=== PATIENT | female | born 1975 | race Caucasian/White ===

== ENCOUNTER → 2018-12-22 19:56 | Outpatient (REF) | payer OTHER, MEDICAID, SELFPAY ==
[2018-12-22 20:50] LABS: Alanine Aminotransferase 55 IU/L (9-52); Albumin 4.1 g/dL (3.5-5.0); Albumin Globulin Ratio 1.4 (1.0-2.8); Alkaline Phosphatase 48 U/L (38-126); Aspartate Aminotransferase 31 IU/L (14-36); Bilirubin Total 0.7 mg/dL (0.2-1.3); Blood Urea Nitrogen 9 mg/dL (7-17); Carbon Dioxide 25 mmol/L (22-32); Chloride 105 mmol/L (98-107); Estimated Glomerular Filt Rate > 60.0 mL/min (>60); Glucose 93 mg/dL (70-100); HEMOLYSIS < 15 (0-50); Potassium 4.4 mmol/L (3.4-5.1); Sodium 140 mmol/L (137-145); Total Protein 7.1 g/dL (6.3-8.2)
[2018-12-22 20:54] LABS: Hemoglobin A1C% w Est Avg Glu 5.7 % (4.0-6.0)
== END ==
LOC: LAB 19:56
PROVIDERS: Visit Provider Naturopath
DX: E11.9 Type 2 diabetes mellitus without complications (principal)
CPT/HCPCS: 80053; 83036

== ENCOUNTER 2020-01-15 13:34 | Emergency (ER) | payer SELFPAY ==
[2020-01-15 13:40] VITALS: BP 145/71; PULSE 74; RESP 16; TEMP 36.8; O2SAT 98; BMI 47.2
--- NOTE | 2020-01-15 15:47 | DI.CT.S_ITS ---
PROCEDURE: CT SOFT TISSUE NECK W CON INDICATIONS: L jaw pain, looking for parotid mass / abcess TECHNIQUE: After the administration of intravenous contrast, 3.0 mm axial sections acquired from the sella to the aortic arch. Additional oblique axial 3.0 mm sections acquired through the pharynx. 3 mm thick coronal and sagittal reformats were generated. For radiation dose reduction, the following was used: automated exposure control. COMPARISON: None. FINDINGS: Image quality: Excellent. Lymph nodes: No enlarged lymph nodes seen throughout the neck. Vessels: Visualized vasculature appears patent. Neck spaces: The oropharynx, nasopharynx, and pharynx demonstrate no mucosal lesions. The vocal cords, false vocal cords, pyriform sinuses, epiglottis, vallecula, and tongue base all appear normal. Extramucosal spaces appear unremarkable. Glands: The parotid and submandibular glands appear normal. Thyroid gland appears normal. Miscellaneous: Visualized brain and orbits appear normal. Lung apices appear clear. Superficial soft tissues appear normal. Bones: No suspicious bony lesions. Visualized sinuses and mastoids appear unremarkable. IMPRESSION: There is clinical concern is described as the left parotid region. The parotid gland shows homogeneous radiodensity without identifiable inflammation or underlying soft tissue mass. No adjacent adenopathy is found. A source of the clinically reported asymmetry in the parotid regions, left versus right, is not found. Dictated by: Sin Britton M.D. on 01/15/2020 at 16:58 Approved by: Sin Britton M.D. on 01/15/2020 at 17:02
[2020-01-15] MEDS: SODIUM CHLORIDE 0.9% 1,000 ML 1000 ML IV (16:07)
[2020-01-15 16:11] LABS: Add Manual Diff / Slide Review NO; Basophils Absolute Auto 100 /uL (0-100); Basophils Percent Auto 0.6 % (0-2); Eosinophils Absolute Auto 900 /uL (0-450); Eosinophils Percent Auto 8.8 % (2-4); Hematocrit 42.6 % (36-46); Hemoglobin 14.1 g/dL (12.0-16.0); Lymphocytes Absolute Auto 3600 /uL (1100-4500); Lymphocytes Percent Auto 35.8 % (25-40); Mean Corpuscular Hemoglobin 30.6 PG (26-34); Mean Corpuscular Volume 92.7 fL (80-100); Monocytes Absolute Auto 600 /uL (0-900); Monocytes Percent Auto 5.5 % (3-14); Neutrophils Absolute Auto 4900 /uL (1500-7000); Neutrophils Percent Auto 49.3 % (50-75); Platelet Count 259 X10^3/uL (150-400); Red Blood Cell Count 4.59 X10^6/uL (4.0-5.2)
[2020-01-15 16:14] VITALS: BP 148/80; PULSE 70; RESP 18; O2SAT 99
[2020-01-15 16:22] LABS: Alanine Aminotransferase 21 IU/L (<35); Albumin 4.6 g/dL (3.5-5.0); Albumin Globulin Ratio 1.2 (1.0-2.8); Alkaline Phosphatase 39 U/L (38-126); Aspartate Aminotransferase 31 IU/L (14-36); BUN Creatinine Ratio 24.6 (6-22); Bilirubin Total 0.7 mg/dL (0.2-1.3); Blood Urea Nitrogen 15 mg/dL (7-17); Calcium 9.5 mg/dL (8.4-10.2); Carbon Dioxide 24 mmol/L (22-32); Chloride 107 mmol/L (98-107); Estimated Glomerular Filt Rate > 60.0 mL/min (>60); Globulin 3.7 g/dL (1.7-4.1); Glucose 89 mg/dL (70-100); Potassium 4.2 mmol/L (3.4-5.1); Sodium 140 mmol/L (137-145); Total Protein 8.3 g/dL (6.3-8.2)
[2020-01-15 16:24] LABS: HEMOLYSIS 79 (0-50)
--- NOTE | 2020-01-15 17:01 | ED_ITS ---
HPI - Dental/Oral <Mina TerrellTIFFANY crawfordP - Last Filed: 01/15/20 23:29> General Chief complaint: Dental/Oral Stated complaint: Swelling of jaw, pain, nausea, shakes Time Seen by Provider: 01/15/20 14:52 Source: patient Mode of arrival: Ambulatory Limitations: no limitations History of Present Illness HPI Narrative: This is a 44 year female, nonsmoker, who presents to ED with chief complain of left parotid gland and cervical lymph node swelling and concerns for infection. Patient reports she noticed the swelling swelling since October this year and she had received 2 antibiotic medication treatment with Augmentin b.i.d. dose for 5 days. Last antibiotic medication was completed 1 week ago having 2 week break from 1st antibiotic medication completion. After each antibiotic medication therapy, her symptoms and swelling had improved with occasional redness on her face. Patient reports last 2 weeks she has been having feeling run down with chills, nausea, feeling sweaty at nights. She correlates with these symptoms with high sugar content in her diet. Patient also tried Nystatin for 1 day but the side effects was unbearable with nausea, diarrhea, chills and the urinary tract infection symptoms and she had stopped taking this which was prescribed to cover Crystal infection empirically. Patient reports she had contacted her primary care physician Dr. Cristina to inform this. She also was evaluated by dentist in 12/07/19 thought she had dental caries or abscess but she was informed negative for abscess or dental caries. Patient reports some discomfort in her left ear. She denies sore throat, cough, dysphagia, swelling in her throat. Patient has medical conditions such as diabetes, cholecystectomy, kidney surgery during childhood. Related Data Allergies Allergy/AdvReac Type Severity Reaction Status Date / Time No Known Drug Allergies Allergy Verified 01/15/20 13:40 Review of Systems <Mina Terrellty [employer]IST[employer] - Last Filed: 01/15/20 23:29> Review of Systems Narrative: General: Denies (+) subjective fever, (+) chills, fatigue, (+) malaise, sweats. HEENT: See HPI Respiratory: Denies dyspnea, cough, wheezing, hemoptysis, sputum. Cardiovascular: Denies chest pain, palpitations, orthopnea, edema. Gastrointestinal: Denies nausea, vomiting, abdominal pain, diarrhea, constipa tion, melena. : Denies dysuria, frequency, incontinence, hematuria, urinary retention. Musculoskeletal: Denies weakness, joint pain or bony pain. Skin: Denies rash, skin lesions, or other. Neurologic: Denies weakness, headache, numbness, change in speech, confusion, seizures, incoordination. Psychiatric: No concerning psychosocial issues. 12-point review of systems is negative except for those stated above. Patient History <VANE Pichardo - Last Filed: 01/15/20 23:29> Medical History (Updated 01/15/20 @ 17:50 by VANE Pichardo) Diabetes (Acute) FH: cholecystectomy (Acute) Surgical History (Updated 01/15/20 @ 17:14 by VANE Pichardo) History of kidney surgery (Acute) History of umbilical hernia repair (Acute) Social History Smoking Status: Never smoker Smoking Status: Never smoker Substance Use Type: does not use Exam <VANE Pichardo - Last Filed: 01/15/20 23:29> Narrative Exam Narrative: GEN: Alert, oriented x 3, well appearing and nourished, and in no acute distress. Head: Normal cephalic, atraumatic. No scalp or temporal tenderness, palpable mass or rash. EYES: Pupils are equal, round, and reactive to light and accommodation. Extraocular muscles are intact bilaterally. There is no subconjunctival hemorrhage, exudate and sclera non-icteric. ENT: Bilateral auditory canals and tympanic membranes clear. Hearing grossly intact. Nose without bleeding, purulent discharge or deviation. Facial sinuses nontender to palpate. Mucous membrane moist, no mucosal lesion. Throat without erythema, tonsillar hypertrophy or exudate. Uvula in midline, airway patent. No obvious swelling, redness, warmth appreciated on left side face/cheek. Neck: Trachea in midline. No JVD, mild tenderness to palpate in left cervical lymph nodes without obvious lymphadenopathy. No masses or thyroid megaly. Supple, non-tender and no meningeal signs. CARDIAC: Normal regular rate and rhythm without murmurs, gallops, or rubs. No chest wall tenderness. No peripheral edema, cyanosis or pallor. Capillary refill is less than 2 seconds. RESPIRATORY: Lungs are clear to auscultate bilaterally. No cough, wheezes, rales, or rhonchi. No stridor, respiratory distress, increase work of breathing, or accessary muscle used. ABD: Abdomen soft, nontender and non-distended. No guarding or rebound tenderness to palpate. Bowel sounds are normal in all 4 quadrants. There is no palpable masses or organomegaly. EXT: Full painless ROM of all extremities with no loss of sensation, strength, effusion or edema. SKIN: Warm, dry, normal color for patient. No erythema, lesions or rash over visible areas. BACK: Nontender without deformity or crepitance. No flank tenderness. NEUROLOGICAL: Alert and oriented to place, time and person. Sensation and motor function intact bilaterally. No facial droops, dysphasia. PSYCHIATRIC: Good judgement and reason, without hallucinations, abnormal affect or abnormal behaviors during the examination. Initial Vital Signs Initial Vital Signs: Vital Signs Temperature 98.3 F 01/15/20 13:40 Pulse Rate 74 01/15/20 13:40 Respiratory Rate 16 01/15/20 13:40 Blood Pressure 145/71 H 01/15/20 13:40 Pulse Oximetry 98 01/15/20 13:40 <Malu Figueroa MD - Last Filed: 01/16/20 07:12> Initial Vital Signs Initial Vital Signs: Vital Signs Temperature 98.3 F 01/15/20 13:40 Pulse Rate 74 01/15/20 13:40 Respiratory Rate 16 01/15/20 13:40 Blood Pressure 145/71 H 01/15/20 13:40 Pulse Oximetry 98 01/15/20 13:40 Scores <VANE Pichardo - Last Filed: 01/15/20 23:29> GCS Eaton coma scale eye opening: Spontaneous Reese coma scale verbal response: Orientated Reese coma scale motor response: Obey commands Eaton coma scale total score: 15 Course <VANE Pichardo - Last Filed: 01/15/20 23:29> Orders Ordered: Discontinued Medications Sodium Chloride (Normal Saline 0.9%) 1,000 mls @ 1,000 mls/hr IV BOLUS ONE Stop: 01/15/20 17:01 Last Infusion: 01/15/20 17:41 Dose: 0 mls/hr Documented by: Admin: 01/15/20 16:07 Dose: 1,000 mls/hr Documented by: YULISA Vital Signs Vital signs: Vital Signs - 8 hr 01/15/20 16:14 01/15/20 18:01 Pulse Rate 70 68 Respiratory Rate 18 18 Blood Pressure [Left Arm] 148/80 H 146/74 H Pulse Oximetry 99 96 <Malu Figueroa MD - Last Filed: 01/16/20 07:12> Orders Ordered: Discontinued Medications Sodium Chloride (Normal Saline 0.9%) 1,000 mls @ 1,000 mls/hr IV BOLUS ONE Stop: 01/15/20 17:01 Last Infusion: 01/15/20 17:41 Dose: 0 mls/hr Documented by: Admin: 01/15/20 16:07 Dose: 1,000 mls/hr Documented by: YULISA Vital Signs Vital signs: Vital Signs - 8 hr 01/15/20 16:14 01/15/20 18:01 Pulse Rate 70 68 Respiratory Rate 18 18 Blood Pressure [Left Arm] 148/80 H 146/74 H Pulse Oximetry 99 96 MDM - Dental/Oral <VANE Pichardo - Last Filed: 01/15/20 23:29> Differential Diagnosis Differential diagnosis: Likely other (parotid gland enlargement, cervial lymph nodepathy, dental caries) Medical Records Attestation: I reviewed the patient's medical records. Lab Data Attestation: I reviewed the patient's lab results. Result diagrams: 01/15/20 16:00 01/15/20 16:00 Labs: Lab Results 01/15/20 01/15/20 Range/Units 16:00 16:00 WBC 10.0 (4.5-11.0) X10^3/uL RBC 4.59 (4.0-5.2) X10^6/uL Hgb 14.1 (12.0-16.0) g/dL Hct 42.6 (36-46) % MCV 92.7 (80-100) fL MCH 30.6 (26-34) PG MCHC 33.0 (30-36) % RDW 13.0 (11.6-14.8) % Plt Count 259 (150-400) X10^3/uL Neut % (Auto) 49.3 L (50-75) % Lymph % (Auto) 35.8 (25-40) % [place] % (Auto) 5.5 (3-14) % Eos % (Auto) 8.8 H (2-4) % Baso % (Auto) 0.6 (0-2) % Neut # (Auto) 4900 (4844-6172) /uL Lymph # (Auto) 3600 (9966-7999) /uL [place] # (Auto) 600 (0-900) /uL Eos # (Auto) 900 H (0-450) /uL Baso # (Auto) 100 (0-100) /uL Sodium 140 (137-145) mmol/L Potassium 4.2 (3.4-5.1) mmol/L Chloride 107 (98-107) mmol/L Carbon Dioxide 24 (22-32) mmol/L BUN 15 (7-17) mg/dL Creatinine 0.61 (0.52-1.04) mg/dL Estimated GFR > 60.0 (>60) mL/min BUN/Creatinine Ratio 24.6 H (6-22) Glucose 89 (70-100) mg/dL Calcium 9.5 (8.4-10.2) mg/dL Total Bilirubin 0.7 (0.2-1.3) mg/dL AST 31 (14-36) IU/L ALT 21 (<35) IU/L Alkaline Phosphatase 39 (38-126) U/L Total Protein 8.3 H (6.3-8.2) g/dL Albumin 4.6 (3.5-5.0) g/dL Globulin 3.7 (1.7-4.1) g/dL Albumin/Globulin Ratio 1.2 (1.0-2.8) Imaging Data CT-Facial tissue/neck: Radiologist's Impression: [place] [address] CT Scan Report Signed Patient: YADEE WALTER#: [id number] : 1975Acct:[id number] Age/Sex: 44 / FDate of Service: 01/15/20 Loc: ED Accession Number: [id number] Procedure: CT soft tissue neck w con Ordering Provider: Mina Das PROCEDURE: CT SOFT TISSUE NECK W CON INDICATIONS: L jaw pain, looking for parotid mass / abcess TECHNIQUE: After the administration of intravenous contrast, 3.0 mm axial sections acquired from the sella to the aortic arch. Additional oblique axial 3.0 mm sections acquired through the pharynx. 3 mm thick coronal and sagittal reformats were generated. For radiation dose reduction, the following was used: automated exposure control. COMPARISON: None. FINDINGS: Image quality: Excellent. Lymph nodes: No enlarged lymph nodes seen throughout the neck. Vessels: Visualized vasculature appears patent. Neck spaces: The oropharynx, nasopharynx, and pharynx demonstrate no mucosal lesions. The vocal cords, false vocal cords, pyriform sinuses, epiglottis, vallecula, and tongue base all appear normal. Extramucosal spaces appear unremarkable. Glands: The parotid and submandibular glands appear normal. Thyroid gland appears normal. Miscellaneous: Visualized brain and orbits appear normal. Lung apices appear clear. Superficial soft tissues appear normal. Bones: No suspicious bony lesions. Visualized sinuses and mastoids appear unremarkable. IMPRESSION: There is clinical concern is described as the left parotid region. The parotid gland shows homogeneous radiodensity without identifiable inflammation or underlying soft tissue mass. No adjacent adenopathy is found. A source of the clinically reported asymmetry in the parotid regions, left versus right, is not found. Dictated by: Sin Britton M.D. on 01/15/2020 at 16:58 Approved by: Sin Britton M.D. on 01/15/2020 at 17:02 [facility] Narrative Medical decision making narrative: This is 44-year-old female who presents to ED with concerns for parotid gland swelling/abscess/tumor after she was referred to ED by a physician friend. Patient reports swelling to her parotid gland for last 3 months and intermittently this has improved when she had taken antibiotic medication Augmentin for 5 day course twice. Patient reports last 2 weeks she had run down symptoms and subjective fever and chills. Patient was prescribed with Nystatin by her PCP to cover Crystal infection but she was unable to tolerate this medication from side effects after 1 day. Patient was afebrile with blood pressure and heart rate within normal limits. There is no leukocytosis appreciated. Patient was concerned for a IV contrasted CT scan for imaging test while patient is taking metformin for diabetes. Patient was given 1 L of normal saline pre CT and her kidney function test was normal. Unremarkable chemistry test otherwise. CT of soft tissue of neck with IV contrast indicates no acute findings, no identifiable inflammation or underlying soft tissue mass. No absent adenoma papule was found. Thyroid gland appeared to be normal. No obvious swelling noted on left cheek despite patient felt swelling. No obvious cervical lymph adenopathy appreciated. Patient advised to follow-up with PCP for re-evaluation on her malaise and return precautions were discussed with the patient. Given normal findings on lab and imaging test, no further antibiotic medication has been prescribed. Patient verbalized understanding and agreement with the treatment plan. <Malu Figueroa MD - Last Filed: 01/16/20 07:12> Lab Data Labs: Lab Results 01/15/20 01/15/20 Range/Units 16:00 16:00 WBC 10.0 (4.5-11.0) X10^3/uL RBC 4.59 (4.0-5.2) X10^6/uL Hgb 14.1 (12.0-16.0) g/dL Hct 42.6 (36-46) % MCV 92.7 (80-100) fL MCH 30.6 (26-34) PG MCHC 33.0 (30-36) % RDW 13.0 (11.6-14.8) % Plt Count 259 (150-400) X10^3/uL Neut % (Auto) 49.3 L (50-75) % Lymph % (Auto) 35.8 (25-40) % [place] % (Auto) 5.5 (3-14) % Eos % (Auto) 8.8 H (2-4) % Baso % (Auto) 0.6 (0-2) % Neut # (Auto) 4900 (1751-8616) /uL Lymph # (Auto) 3600 (6621-3259) /uL [place] # (Auto) 600 (0-900) /uL Eos # (Auto) 900 H (0-450) /uL Baso # (Auto) 100 (0-100) /uL Sodium 140 (137-145) mmol/L Potassium 4.2 (3.4-5.1) mmol/L Chloride 107 (98-107) mmol/L Carbon Dioxide 24 (22-32) mmol/L BUN 15 (7-17) mg/dL Creatinine 0.61 (0.52-1.04) mg/dL Estimated GFR > 60.0 (>60) mL/min BUN/Creatinine Ratio 24.6 H (6-22) Glucose 89 (70-100) mg/dL Calcium 9.5 (8.4-10.2) mg/dL Total Bilirubin 0.7 (0.2-1.3) mg/dL AST 31 (14-36) IU/L ALT 21 (<35) IU/L Alkaline Phosphatase 39 (38-126) U/L Total Protein 8.3 H (6.3-8.2) g/dL Albumin 4.6 (3.5-5.0) g/dL Globulin 3.7 (1.7-4.1) g/dL Albumin/Globulin Ratio 1.2 (1.0-2.8) Discharge Plan Departure Patient Disposition: Home Clinical Impression: Feared complaint without diagnosis Discharge Date/Time: 01/15/20 18:00 Activity Restrictions/Additional Instructions: You have been diagnosed with [cervical lymph node and mouth discomfort. There is no indication of elevated WBC. Chemistry test was unremarkable. CT of soft tissue face/neck test does not show acute findings. No parotid gland, submandibular gland, or thyroid gland swelling appreciated in CT.]. What to do: *Take your medications as directed. *Follow up with your primary care provider in 2-3 days, call for an appointment. Let them know you were seen in the ED and that we asked you to be seen in follow up. *Return to ED if you have any new, worsening, or concerning symptoms, such as [chest pain, breathing difficulty, fever, unable to tolerate fluids, feeling like faint or any acute concerns]. Referrals: Ivelisse Cristina ND [Non-Staff] - <Malu Figueroa MD - Last Filed: 01/16/20 07:12> Cosign ED Attending Cosignature Attestation: Pt is seen in conjuction with Ms Luisana Hernandez. There is a fullness in the upper portion of the left carotid triangle that has been present for almost 2 months. Was initially felt to be a blocked salivary duct and then possibility of block parotid duct physical exam does not suggest duct occlusion at any site there is no palpable stones at salivary duct papillae either this submandibular or the parotid. She continues to have fevers and general malaise. Been through 2 courses of antibiotics without resolution. CT scan does not suggest significant pathology at this time however if mass continues to be palpable or is causing problems within the next 6 day weeks I would recommend referral to either surgery or ENT for additional consideration of possibility of biopsy.
[2020-01-15 18:01] VITALS: BP 146/74; PULSE 68; RESP 18; O2SAT 96
== END 2020-01-15 18:00 | disposition home or self-care (01) ==
PROVIDERS: Emergency Medicine; Emergency Provider Nurse Practitioner Family
DX: R59.0 Localized enlarged lymph nodes (principal)
CPT/HCPCS: 36415; 70491; 80053; 85025; 96360; 96361; 99284; Q9967